=== PATIENT | female | born 1930 | race Caucasian/White ===

== ENCOUNTER 2016-12-14 13:23 | Inpatient (IN) | payer MEDICARE, BC ==
[2016-12-14] MEDS ORDERED: ACETAMINOPHEN IV (For NPO) 1,000 MG in SALINE 100 100ML.BAG IVPB STA (14:15)
[2016-12-14] MEDS ORDERED: IPRATROPIUM-ALBUTEROL 3 ML NEB INHALATION STA (14:15)
[2016-12-14] MEDS ORDERED: SODIUM CHLORIDE 0.9% 500 ML IV STA (14:15)
[2016-12-14] MEDS ORDERED: SODIUM CHLORIDE 0.9% 1,000 ML IV STA (14:15)
--- NOTE | 2016-12-14 14:35 | ED ---
General Adult HPI - General Chief complaint: Shortness of Breath Stated complaint: Weak/Dehydration Time Seen by Provider: 12/14/16 14:05 Source: patient, RN notes reviewed Mode of arrival: ambulatory Limitations: no limitations - History of Present Illness Initial comments: Patient is a 86-year-old female who presents emergency room today with a chief complaint of increased cough congestion over the last 2 weeks. Does admit that this started 2 weeks ago was diagnosed with flu. Patient's son at bedside providing information stating that she was at [facility] diagnosed with flu given Tamiflu. States symptoms do not improve she's had increased rhinorrhea with cough congestion. Patient states multiple colors with a sputum production. Admits to fever and chills at home. Denies any other complaints or symptoms at this time. Patient denies any recent shortness of breath, chest pain, back pain, abdominal pain, nausea or vomiting, numbness or tingling, dysuria or hematuria, constipation or diarrhea, headaches or visual changes, or any other complaints. Denies any past medical history. - Related Data Home Medications Medication Instructions Recorded Confirmed No Known Home Medications [No 12/14/16 12/14/16 Known Home Medications] Allergies Allergy/AdvReac Type Severity Reaction Status Date / Time No Known Allergies Allergy Verified 12/14/16 14:54 Review of Systems ROS Statement: Those systems with pertinent positive or pertinent negative responses have been documented in the HPI. ROS Other: All systems not noted in ROS Statement are negative. Past Medical History Past Medical History: No Reported History History of Any Multi-Drug Resistant Organisms: None Reported Past Surgical History: No Surgical Hx Reported Past Psychological History: No Psychological Hx Reported Smoking Status: Never smoker Past Alcohol Use History: None Reported Past Drug Use History: None Reported General Exam - General Exam Comments Initial Comments: General: The patient is awake and alert, in no distress, and does not appear acutely ill. Eye: Pupils are equal, round and reactive to light, extra-ocular movements are intact. No nystagmus. There is normal conjunctiva bilaterally. No signs of icterus. Ears, nose, mouth and throat: There are moist mucous membranes and no oral lesions. Neck: The neck is supple, there is no tenderness or JVD. Cardiovascular: There is a regular rate and rhythm. No murmur, rub or gallop is appreciated. Respiratory: Mild expiratory wheeze and scattered rhonchi. respirations are non-labored, breath sounds are equal. No stridor, rales. Gastrointestinal: Soft, non-distended, non-tender abdomen without masses or organomegaly noted. There is no rebound or guarding present. No CVA tenderness. Bowel sounds are unremarkable. Musculoskeletal: Normal ROM, no tenderness. Strength 5/5. Sensation intact. Pulses equal bilaterally 2+. Neurological: A&O x 3. CN II-XII intact, There are no obvious motor or sensory deficits. Coordination appears grossly intact. Speech is normal. Skin: Skin is warm and dry and no rashes or lesions are noted. Psychiatric: Cooperative, appropriate mood & affect, normal judgment. Limitations: no limitations Course Vital Signs 12/14/16 12/14/16 12/14/16 14:00 15:32 15:44 Temperature 100.6 F H 99 F Pulse Rate 99 100 93 Respiratory 18 16 Rate Blood Pressure 142/89 123/58 O2 Sat by Pulse 89 L 92 L Oximetry 12/14/16 15:46 Temperature Pulse Rate 96 Respiratory Rate Blood Pressure O2 Sat by Pulse Oximetry Medical Decision Making - Medical Decision Making Patient labs reviewed does show 22,000 white count. Patient's chest x-ray revealed and pneumonia in the right upper lobe. Patient had fever at triage. Patient started on antibiotics Levaquin. Patient will be admitted. Case discussed with attending physician Dr. Cole who discussed case with admitting physician . - Lab Data Result diagrams: 12/14/16 14:30 12/14/16 14:30 Lab Results 12/14/16 12/14/16 12/14/16 Range/Units 14:30 14:30 14:30 WBC 22.6 H (3.8-10.6) k/uL RBC 4.44 (3.80-5.40) m/uL Hgb 12.8 (11.4-16.0) gm/dL Hct 39.2 (34.0-46.0) % MCV 88.3 (80.0-100.0) fL MCH 28.8 (25.0-35.0) pg MCHC 32.6 (31.0-37.0) g/dL RDW 13.1 (11.5-15.5) % Plt Count 506 H (150-450) k/uL Neutrophils % 89 % Lymphocytes % 6 % Monocytes % 3 % Eosinophils % 1 % Basophils % 1 % Neutrophils # 20.1 H (1.3-7.7) k/uL Lymphocytes # 1.4 (1.0-4.8) k/uL Monocytes # 0.6 (0-1.0) k/uL Eosinophils # 0.1 (0-0.7) k/uL Basophils # 0.1 (0-0.2) k/uL PT (9.0-12.0) sec INR (<1.1) APTT (22.0-30.0) sec Sodium 137 (137-145) mmol/L Potassium 3.7 (3.5-5.1) mmol/L Chloride 97 L (98-107) mmol/L Carbon Dioxide 29 (22-30) mmol/L Anion Gap 11 mmol/L BUN 11 (7-17) mg/dL Creatinine 0.70 (0.52-1.04) mg/dL Est GFR (MDRD) Af Amer >60 (>60 ml/min/1.73 sqM) Est GFR (MDRD) Non-Af >60 (>60 ml/min/1.73 sqM) Glucose 119 H (74-99) mg/dL Calcium 8.6 (8.4-10.2) mg/dL Total Bilirubin 0.7 (0.2-1.3) mg/dL AST 29 (14-36) U/L ALT 68 H (9-52) U/L Alkaline Phosphatase 131 H (38-126) U/L Troponin I (0.000-0.034) ng/mL Total Protein 6.1 L (6.3-8.2) g/dL Albumin 3.0 L (3.5-5.0) g/dL Influenza Type A RNA Not Detected (Not Detectd) Influenza Type B (PCR) Not Detected (Not Detectd) 12/14/16 12/14/16 Range/Units 14:40 14:40 WBC (3.8-10.6) k/uL RBC (3.80-5.40) m/uL Hgb (11.4-16.0) gm/dL Hct (34.0-46.0) % MCV (80.0-100.0) fL MCH (25.0-35.0) pg MCHC (31.0-37.0) g/dL RDW (11.5-15.5) % Plt Count (150-450) k/uL Neutrophils % % Lymphocytes % % Monocytes % % Eosinophils % % Basophils % % Neutrophils # (1.3-7.7) k/uL Lymphocytes # (1.0-4.8) k/uL Monocytes # (0-1.0) k/uL Eosinophils # (0-0.7) k/uL Basophils # (0-0.2) k/uL PT 10.6 (9.0-12.0) sec INR 1.0 (<1.1) APTT 22.5 (22.0-30.0) sec Sodium (137-145) mmol/L Potassium (3.5-5.1) mmol/L Chloride (98-107) mmol/L Carbon Dioxide (22-30) mmol/L Anion Gap mmol/L BUN (7-17) mg/dL Creatinine (0.52-1.04) mg/dL Est GFR (MDRD) Af Amer (>60 ml/min/1.73 sqM) Est GFR (MDRD) Non-Af (>60 ml/min/1.73 sqM) Glucose (74-99) mg/dL Calcium (8.4-10.2) mg/dL Total Bilirubin (0.2-1.3) mg/dL AST (14-36) U/L ALT (9-52) U/L Alkaline Phosphatase (38-126) U/L Troponin I <0.012 (0.000-0.034) ng/mL Total Protein (6.3-8.2) g/dL Albumin (3.5-5.0) g/dL Influenza Type A RNA (Not Detectd) Influenza Type B (PCR) (Not Detectd) Disposition Clinical Impression: Community acquired pneumonia, Sepsis Disposition: ADMITTED IP TO THIS HOSP Condition: Stable Time of Disposition: 16:01
[2016-12-14 14:45] LABS: Basophils # (A) 0.1 k/uL (0-0.2); Basophils % (A) 1 %; CH 29.4; CHCM 33.4; Eosinophils # (A) 0.1 k/uL (0-0.7); Eosinophils % (A) 1 %; HCT 39.2 % (34.0-46.0); HDW 2.91; HGB 12.8 gm/dL (11.4-16.0); Luc # (Auto) 0.27; Luc % (Auto) 1; Lymphocytes # (A) 1.4 k/uL (1.0-4.8); Lymphocytes % (A) 6 %; MCH 28.8 pg (25.0-35.0); MCHC 32.6 g/dL (31.0-37.0); MCV 88.3 fL (80.0-100.0); Mean Platelet Volume 6.7; Monocytes # (A) 0.6 k/uL (0-1.0); Monocytes % (A) 3 %; Neutrophils # (A) 20.1 k/uL (1.3-7.7); Neutrophils % (A) 89 %; RBC 4.44 m/uL (3.80-5.40); RDW 13.1 % (11.5-15.5); WBC 22.6 k/uL (3.8-10.6); WBC (Perox) 22.11
[2016-12-14 14:59] LABS: ALT 68 U/L (9-52); AST 29 U/L (14-36); Alkaline Phosphatase 131 U/L (38-126); Anion Gap 11 mmol/L; Blood Urea Nitrogen 11 mg/dL (7-17); Calcium 8.6 mg/dL (8.4-10.2); Carbon Dioxide 29 mmol/L (22-30); Chloride 97 mmol/L (98-107); Glucose 119 mg/dL (74-99); Non-African American GFR(MDRD) >60 (>60 ml/min/1.73 sqM); Potassium 3.7 mmol/L (3.5-5.1); Sodium 137 mmol/L (137-145); Total Bilirubin 0.7 mg/dL (0.2-1.3); Total Protein 6.1 g/dL (6.3-8.2)
[2016-12-14 15:46] LABS: Partial Thromboplastin Time 22.5 sec (22.0-30.0); Prothrombin Time 10.6 sec (9.0-12.0)
--- NOTE | 2016-12-14 15:47 | XR ---
EXAMINATION TYPE: XR chest 2V DATE OF EXAM: 12/14/2016 3:20 PM COMPARISON: NONE TECHNIQUE: PA and lateral views submitted. HISTORY: Cough and congestion FINDINGS: There is subsegmental consolidation medial aspect of the right lower lobe as well as within the right apex and right upper lobe. Underlying COPD and borderline to mild cardiomegaly. Diffuse osteopenia and arthropathy of the shoulders with degenerative change of the spine. IMPRESSION: 1. Right upper and lower lobe area of consolidation correlate for pneumonia. Follow-up to resolution to exclude underlying neoplasm.
[2016-12-14] MEDS ORDERED: LEVOFLOXACIN 500MG-D5W PMX 500 MG in DEXTROSE/WATER 1 100ML.BAG IVPB STA (15:48)
[2016-12-14] MEDS ORDERED: ACETAMINOPHEN TAB 325 MG TAB PO PRN (16:10)
[2016-12-14] MEDS ORDERED: SODIUM CHLORIDE 0.9% 1,000 ML IV ONE (16:10)
[2016-12-14] MEDS ORDERED: ONDANSETRON 4 MG/2 ML VIAL IVP PRN (16:10)
[2016-12-14] MEDS ORDERED: NALOXONE 0.4 MG/ML 1 ML VIAL IV PRN (16:10)
[2016-12-14 16:29] LABS: Appearance,Urine Cloudy (Clear); Bilirubin,Urine Negative (Negative); Glucose,Urine (UA) Negative (Negative); Ketones,Urine 1+ (Negative); Leukocyte Esterase,Urine Trace (Negative); Mucus,Urine Moderate /hpf; Nitrite,Urine Negative (Negative); Particle Count 17992; Protein,Urine 1+ (Negative); RBC,Urine 7 /hpf (0-5); Specific Gravity,Urine 1.027 (1.001-1.035); Squamous Epithelial Cell,Urine 5 /hpf (0-4); UA Billing (MACRO vs. MICRO) MICRO; WBC,Urine 12 /hpf (0-5)
[2016-12-14] MEDS ORDERED: ALPRAZolam 0.25 MG TAB PO PRN (19:22)
[2016-12-14] MEDS ORDERED: IPRATROPIUM-ALBUTEROL 3 ML NEB INHALATION PRN (19:43)
[2016-12-14] MEDS ORDERED: IPRATROPIUM-ALBUTEROL 3 ML NEB INHALATION SCH (20:00)
[2016-12-14] MEDS: IPRATROPIUM-ALBUTEROL 3 ML NEB INHALATION SCH (20:01)
[2016-12-14] MEDS: AZITHROMYCIN 500 MG in SODIUM CHLORIDE 0.9% 250 ML IVPB SCH (21:50)
[2016-12-14] MEDS: HEPARIN SODIUM,PORCINE 5,000 UNIT/ML 1 ML VIAL SQ SCH (21:50)
[2016-12-14] MEDS: MELATONIN 3 MG TABLET PO SCH (21:56)
[2016-12-15] MEDS: IPRATROPIUM-ALBUTEROL 3 ML NEB INHALATION SCH ×4 (07:17→19:34)
[2016-12-15 07:46] LABS: Basophils # (A) 0.1 k/uL (0-0.2); Basophils % (A) 0 %; CH 29.2; CHCM 32.8; Eosinophils # (A) 0.2 k/uL (0-0.7); Eosinophils % (A) 1 %; HCT 34.3 % (34.0-46.0); HDW 2.87; HGB 11.1 gm/dL (11.4-16.0); Luc # (Auto) 0.25; Luc % (Auto) 1; Lymphocytes # (A) 1.7 k/uL (1.0-4.8); Lymphocytes % (A) 9 %; MCH 28.8 pg (25.0-35.0); MCHC 32.2 g/dL (31.0-37.0); MCV 89.5 fL (80.0-100.0); Mean Platelet Volume 6.7; Monocytes # (A) 0.6 k/uL (0-1.0); Monocytes % (A) 3 %; Neutrophils # (A) 16.5 k/uL (1.3-7.7); Neutrophils % (A) 86 %; RBC 3.84 m/uL (3.80-5.40); RDW 13.2 % (11.5-15.5); WBC 19.3 k/uL (3.8-10.6); WBC (Perox) 21.32
[2016-12-15 08:09] LABS: ALT 46 U/L (9-52); AST 20 U/L (14-36); Alkaline Phosphatase 107 U/L (38-126); Anion Gap 12 mmol/L; Blood Urea Nitrogen 10 mg/dL (7-17); Carbon Dioxide 24 mmol/L (22-30); Chloride 102 mmol/L (98-107); Glucose 102 mg/dL (74-99); Non-African American GFR(MDRD) >60 (>60 ml/min/1.73 sqM); Potassium 3.7 mmol/L (3.5-5.1); Sodium 138 mmol/L (137-145); Total Bilirubin 0.6 mg/dL (0.2-1.3); Total Protein 5.3 g/dL (6.3-8.2)
[2016-12-15] MEDS: PANTOPRAZOLE 40 MG TABLET PO SCH (08:16)
[2016-12-15] MEDS: HEPARIN SODIUM,PORCINE 5,000 UNIT/ML 1 ML VIAL SQ SCH ×2 (08:17→19:55)
--- NOTE | 2016-12-15 08:37 | HP ---
DATE OF ADMISSION: 12/14/2016 CHIEF COMPLAINT: Shortness of breath and dehydration. HISTORY OF PRESENT ILLNESS: This 86-year-old woman with a past medical history of no significant medical issues, not being followed by any primary physician in the outpatient setting was complaining of shortness of breath and cough for the past several days at least 2 weeks. The patient initially had flu. Patient was in [facility] and given Tamiflu and symptoms did not improve. Because of increasing symptoms, patient came to [facility] and was admitted for further evaluation and treatment. Bilateral pneumonia, right more than the left is suspected on evaluation. There is no history of any rigors or chills. No history of headache, loss of consciousness or seizures. PAST MEDICAL HISTORY: No history of cardiorespiratory illness. MEDICATIONS PRIOR TO ADMISSION: None. ALLERGIES: None. FAMILY HISTORY: No history of heart disease or strokes in the family. SOCIAL HISTORY: No history of smoking, no history of alcohol. REVIEW OF SYSTEMS: ENT: Diminishing vision, diminished hearing. CARDIOVASCULAR: No angina or palpations. RESPIRATORY: As mentioned earlier. GI: No nausea. : No dysuria. NERVOUS SYSTEM: No numbness or weakness. ALLERGY/IMMUNOLOGY: No asthma or hayfever. MUSCULOSKELETAL: As mentioned earlier. HEMATOLOGY/ONCOLOGY: No history of anemia. ENDOCRINE: No history of diabetes. CONSTITUTIONAL: As mentioned comedones. DERMATOLOGY: Negative. RHEUMATOLOGY: Negative. PSYCHIATRY: As mentioned earlier. PHYSICAL EXAMINATION: Alert and oriented x3. Pulse 97, blood pressure 130/68, respirations 16, temperature 96.6, pulse ox 94% on 4 liters. HEENT: Conjunctiva normal. Oral mucosa moist. NECK: No jugular venous distention. No carotid bruit. No lymph node enlargement. CARDIOVASCULAR: S1, S2 muffled. RESPIRATORY: Breath sounds diminished at the bases. A few scattered rhonchi and crackles. Expiratory wheezing also present. ABDOMEN: Soft, umbilical hernia present, reducible. LEGS: No edema, no swelling. NERVOUS SYSTEM: Higher function as mentioned. Moves all four limbs. No focal motor deficits. LYMPHATIC: No lymphadenopathy in the neck, axillae or groin. SKIN: No ulcer, rash or bleeding. LABS: WBC 22.7, platelets are 506, AST is 29, ALT 68, alkaline phosphatase 131. UA noted. Influenza negative. ASSESSMENT: 1. Acute bilateral pneumonia, possibly and gram-positive with possible sepsis, present on admission, possible influenza pneumonia. 2. History of acute influenza. 3. Possible chronic obstructive pulmonary disease or reactive bronchospasm. 4. Increased ALT, possibly secondary to sepsis. 5. Increased WBC. 6. Increased platelets. 7. Umbilical hernia. 8. FULL CODE. Recommendations and discussion: In this 86-year-old woman who presented with multiple complex medical issues, we will monitor the patient closely. Continue the current medications and continue symptomatic treatment. I would recommend intensive bronchodilators treatment and empiric antibiotics. We will consult Dr. Mehta. As well as Dr. Mehta and continue to monitor. Otherwise, cultures will be obtained. Guarded prognosis because of multiple complex medical issues. Further recommendations to follow. I discussed with the family at the bedside at length and stressed the importance of following up in the outpatient setting. The family understands.
--- NOTE | 2016-12-15 12:40 | P.CNPUL ---
History of Present Illness Consult date: 12/15/16 Reason for consult: pneumonia History of present illness: 86-year-old female patient has been healthy all her life without any known chronic illness or disorder or any chronic medication intake. The patient has been living independently at home for many years. She developed some respiratory illness approximately 10 days ago. She was at a birthday constitution party where she got exposed to younger children. She thought that she could've gotten the flu. At that time the patient presented to [facility] where she was told to have the flu and she was given 5 day course of Tamiflu. Nevertheless the patient did not improve that she progressively got worse to the point where she was having increased cough and congestion and she was becoming more weak and lethargic. She presented to the hospital and a chest x-ray was done and showed a right upper lobe and a lower lobe consolidation consistent with pneumonia. Her white cell count was elevated at 22,000. The patient had 89% neutrophilia. Coagulation profile was within normal. Electrodes are all within normal limits. The patient's mentation was within normal and she was a bit lethargic and slow in answering questions. She is getting profoundly weak. No pleurisy. No hemoptysis. No aspiration. No recurrent respiratory tract infections. She has not received a flu shot this year. A repeat influenza screen that was done here in the hospital was negative. 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 IS INDEPENDANT. NO MEDICAL EQUIPMENT, NO OUTSIDE SERVICES. PT RETIRED FROM [employer] 1981 Smoking Status: Never smoker Past Alcohol Use History: None Reported Past Drug Use History: None Reported - Past Family History Father Family Medical History: Cancer Additional Family Medical History / Comment(s): NON HODGKINS LYMPHOMA Mother Family Medical History: Myocardial Infarction (OK) Medications and Allergies Home Medications Medication Instructions Recorded Confirmed Type No Known Home Medications [No 12/14/16 12/14/16 History Known Home Medications] Allergies Allergy/AdvReac Type Severity Reaction Status Date / Time No Known Allergies Allergy Verified 12/14/16 14:54 Physical Exam Vitals: Vital Signs Temp Pulse Pulse Resp BP BP Pulse Ox 12/15/16 11:13 88 12/15/16 11:07 88 12/15/16 07:24 92 12/15/16 07:18 88 12/15/16 07:00 97.1 F L 94 20 149/77 93 L 12/14/16 20:50 97.2 F L 88 16 134/73 94 L 12/14/16 19:46 92 12/14/16 19:37 90 12/14/16 18:47 96.6 F L 87 16 132/60 95 12/14/16 18:09 97.9 F 91 16 105/54 93 L Intake and Output 12/14/16 12/15/16 12/15/16 22:59 06:59 14:59 Intake Total 700 Balance 700 Intake: IV 600 Sodium Chloride 0.9% 1, 600 000 ml @ 75 mls/hr IV . [id number] ONE Rx#:[id number] Oral 100 Other: Voiding Method Toilet Diaper # Voids 1 1 Head exam was generally normal. There was no scleral icterus or corneal arcus. Mucous membranes were moist.Neck was supple and without jugular venous distension, thyromegaly, or carotid bruits. Carotids were easily palpable bilaterally. There was no adenopathy.lung sounds are diminished bilaterally along with some bibasilar crackles heard in the lower lung echevarria more so on the right.Cardiac exam revealed the PMI to be normally situated and sized. The rhythm was regular and no extrasystoles were noted during several minutes of auscultation. The first and second heart sounds were normal and physiologic splitting of the second heart sound was noted. There were no murmurs, rubs, clicks, or gallops.Abdominal exam revealed normal bowel sounds. The abdomen was soft, non-tender, and without masses, organomegaly, or appreciable enlargement of the abdominal aorta. the patient has a large periumbilical anterior abdominal wall hernia which is easily reducible and there is no signs of incarceration or strangulation. Examination of the extremities revealed easily palpable radial, femoral and pedal pulses. There was no cyanosis, clubbing or edema. Results - Laboratory Findings CBC and BMP: 12/15/16 06:57 12/15/16 06:57 PT/INR, D-dimer PT 10.6 sec (9.0-12.0) 12/14/16 14:40 INR 1.0 (<1.1) 12/14/16 14:40 Abnormal lab findings: Abnormal Labs 12/15/16 12/15/16 06:57 06:57 WBC 19.3 H Hgb 11.1 L Neutrophils # 16.5 H Glucose 102 H Calcium 8.0 L Total Protein 5.3 L Albumin 2.4 L - Diagnostic Findings Chest x-ray: image reviewed Assessment and Plan Plan: assessment 1 bilobar right lung pneumonia following a recent respiratory tract infection which could have been a viral influenza infection/URI. 2 shortness of breath secondary to above 3 acute hypoxic respiratory failure secondary to above 4 leukocytosis secondary to above 5 generalized weakness 6 herpetic lip lesions 7 large anterior abdominal wall hernia which is reducible and there is no evidence of strangulation or incarceration. Plan resuscitate the patient with IV fluids. Put the patient on a combination of Rocephin and Zithromax. Apply Zovirax ointment to the lips. The Fluids to 50 ML 's an Hour. Apply a Belt regarding Her Large Anterior Abdominal Wall Hernia. Repeat Chest X-Ray in A.M. We'll Continue to Follow.
[2016-12-15] MEDS: SODIUM CHLORIDE 0.9% 1,000 ML IV SCH (12:49)
[2016-12-15] MEDS: valACYclovir HCL 1,000 MG TABLET PO SCH ×2 (16:52→23:15)
[2016-12-15] MEDS: BUDESONIDE 1 MG/2 ML NEBU INHALATION SCH (19:34)
[2016-12-15] MEDS: FORMOTEROL FUMARATE 20 MCG/2 ML NEBU INHALATION SCH (19:34)
[2016-12-15] MEDS: AZITHROMYCIN 500 MG in SODIUM CHLORIDE 0.9% 250 ML IVPB SCH (19:55)
[2016-12-15] MEDS: MELATONIN 3 MG TABLET PO SCH (19:56)
[2016-12-16] MEDS: FORMOTEROL FUMARATE 20 MCG/2 ML NEBU INHALATION SCH ×2 (07:36→20:01)
[2016-12-16] MEDS: BUDESONIDE 1 MG/2 ML NEBU INHALATION SCH ×2 (07:36→20:02)
[2016-12-16] MEDS: IPRATROPIUM-ALBUTEROL 3 ML NEB INHALATION SCH ×4 (07:36→20:02)
--- NOTE | 2016-12-16 08:06 | XR ---
EXAMINATION TYPE: XR chest 1V DATE OF EXAM: 12/16/2016 6:52 AM COMPARISON: Prior chest x-ray 14 December 2016 HISTORY: Cough, pneumonia TECHNIQUE: Single frontal view of the chest is obtained. FINDINGS: The heart is enlarged. No pneumothorax or pleural effusion evident. Eventration of the rig ht hemidiaphragm is noted. Interstitium is increased, there may be underlying COPD. There may be some improvement in aeration in the right lower lobe. Pulmonary vascularity and shawna not significantly ch anged. IMPRESSION: Cardiomegaly. Correlate for right lower lobe pneumonia.
[2016-12-16 08:21] LABS: Anion Gap 10 mmol/L; Blood Urea Nitrogen 7 mg/dL (7-17); Calcium 8.2 mg/dL (8.4-10.2); Carbon Dioxide 25 mmol/L (22-30); Chloride 104 mmol/L (98-107); Glucose 109 mg/dL (74-99); Non-African American GFR(MDRD) >60 (>60 ml/min/1.73 sqM); Potassium 3.9 mmol/L (3.5-5.1); Sodium 139 mmol/L (137-145)
[2016-12-16 09:00] LABS: Basophils % (A) 0 %; CHCM 32.2; Eosinophils # (A) 0.3 k/uL (0-0.7); Eosinophils % (A) 2 %; HCT 33.9 % (34.0-46.0); HDW 2.87; HGB 10.6 gm/dL (11.4-16.0); Luc # (Auto) 0.13; Luc % (Auto) 1; Lymphocytes # (A) 1.4 k/uL (1.0-4.8); Lymphocytes % (A) 10 %; MCH 28.3 pg (25.0-35.0); MCHC 31.3 g/dL (31.0-37.0); MCV 90.6 fL (80.0-100.0); Mean Platelet Volume 6.9; Monocytes # (A) 0.6 k/uL (0-1.0); Monocytes % (A) 4 %; Neutrophils # (A) 11.5 k/uL (1.3-7.7); Neutrophils % (A) 83 %; RBC 3.74 m/uL (3.80-5.40); RDW 13.3 % (11.5-15.5); WBC 13.8 k/uL (3.8-10.6); WBC (Perox) 14.72
[2016-12-16] MEDS: SODIUM CHLORIDE 0.9% 1,000 ML IV SCH ×2 (09:23→20:17)
[2016-12-16] MEDS: HEPARIN SODIUM,PORCINE 5,000 UNIT/ML 1 ML VIAL SQ SCH ×2 (09:23→20:59)
[2016-12-16] MEDS: PANTOPRAZOLE 40 MG TABLET PO SCH (09:23)
--- NOTE | 2016-12-16 10:01 | PN ---
DATE OF SERVICE: 12/15/2016 This 86-year-old woman was admitted with acute bilateral pneumonia is being closely monitored at this time. The patient had a recent history evidence of influenza. The repeat testing is negative. Patient is on multiple antibiotics. White count is elevated 22.6 yesterday, today is 19.3. Dr. Mehta is following the patient closely. PAST MEDICAL HISTORY: Reviewed. REVIEW OF SYSTEMS: CARDIOVASCULAR: No angina. RESPIRATORY: As mentioned. GI: As mentioned. : No dysuria. NERVOUS SYSTEM: No numbness or weakness. Current medications are reviewed and include: 1. Tylenol 650 q.6. 2. DuoNeb q.i.d. and p.r.n. 3. Xanax 0.25 t.i.d. 4. Zithromax 500 mg daily. 5. Rocephin 1 gram daily. 6. Heparin 5000 subcu b.i.d. 7. Melatonin 3 mg q.h.s. 8. Narcan 0.2 q.2 p.r.n. 9. Zofran. 10. Protonix 40 mg daily. 11. Valtrex 2 grams p.o. b.i.d. PHYSICAL EXAMINATION: Patient is alert and oriented x2. Pulse 88, blood pressure 141/52, respiration 18, temperature 101.9, pulse ox 92% on Ventimask. HEENT: Conjunctivae normal. NECK: No jugular venous distention. No carotid bruit. No lymph node enlargement. CARDIOVASCULAR: S1 and S2, muffled. No S3, no S4. RESPIRATORY: Breath sounds diminished at the bases. Bilateral scattered rhonchi and crackles. ABDOMEN: Soft, nontender. Umbilical hernia. LEGS: No edema, no swelling. NERVOUS SYSTEM: Higher function as mentioned. Moves all four limbs. No focal deficits. LYMPHATIC: No lymphadenopathy in the neck, axillae or groin. SKIN: No ulcer, rash or bleeding. LABS: WBC 19.3, hemoglobin 11.1. AST is 46, ALT is 107, albumin is 2.7. UA noted. ASSESSMENT: 1. Acute bilateral pneumonia, possibly gram-negative with possible sepsis with acute hypoxic respiratory failure present on admission. 2. Possibly influenza pneumonia. 3. History of recent acute influenza. 4. Possible chronic obstructive pulmonary disease or reactive bronchospasm. 5. Increased ALT, possibly secondary to sepsis. 6. Increased WBC. 7. Increased platelets. 8. Umbilical hernia. 9. Hypoalbuminemia with mild to moderate protein calorie malnutrition. 10. Increased random blood sugar. 11. Increased WBC. 12. Anemia, normocytic, anemia of chronic disease. 13. FULL CODE. RECOMMENDATIONS AND DISCUSSION: In this 86-year-old woman who presented with multiple complex medical issues, we will monitor the patient closely. Continue the current medications. Continue broad-spectrum IV antibiotics. Closely follow with Dr. Mehta. Bronchodilators. Continue with the rest of the medications. Otherwise, DVT prophylaxis. Guarded prognosis. Further recommendations to follow. See orders for details.
--- NOTE | 2016-12-16 13:18 | P.PN ---
Subjective 86-year-old female patient has been healthy all her life without any known chronic illness or disorder or any chronic medication intake. The patient has been living independently at home for many years. She developed some respiratory illness approximately 10 days ago. She was at a birthday democrat where she got exposed to younger children. She thought that she could've gotten the flu. At that time the patient presented to [facility] where she was told to have the flu and she was given 5 day course of Tamiflu. Nevertheless the patient did not improve that she progressively got worse to the point where she was having increased cough and congestion and she was becoming more weak and lethargic. She presented to the hospital and a chest x-ray was done and showed a right upper lobe and a lower lobe consolidation consistent with pneumonia. Her white cell count was elevated at 22,000. The patient had 89% neutrophilia. Coagulation profile was within normal. Electrodes are all within normal limits. The patient's mentation was within normal and she was a bit lethargic and slow in answering questions. She is getting profoundly weak. No pleurisy. No hemoptysis. No aspiration. No recurrent respiratory tract infections. She has not received a flu shot this year. A repeat influenza screen that was done here in the hospital was negative. On 12/16/2016 the patient is being seen in follow-up. The patient is being treated for a right lower lobe pneumonia. She continues to have some chest congestion and cough and however overall she looks better compared to yesterday. She is less short of breath. No fever or chills. No aspiration. No diarrhea. No change in mental status. She is more interactive and alert on today's evaluation. Chest x-ray still showing some right basilar pulmonary infiltration typical of an underlying pneumonia. Objective - Vital Signs Vital signs: Vital Signs Temp 97.6 F 12/16/16 07:00 Pulse 92 12/16/16 11:24 Resp 20 12/16/16 07:00 BP 155/73 12/16/16 07:00 Pulse Ox 94 L 12/16/16 07:00 Intake & Output 12/15/16 12/16/16 12/16/16 18:59 06:59 18:59 Intake Total 50 Balance 50 Intake: Oral 50 Other: Voiding Method Toilet Toilet Diaper Diaper # Voids 2 2 1 # Bowel Movements 1 - Exam Head exam was generally normal. There was no scleral icterus or corneal arcus. Mucous membranes were moist.Neck was supple and without jugular venous distension, thyromegaly, or carotid bruits. Carotids were easily palpable bilaterally. There was no adenopathy.lung sounds are diminished bilaterally along with some bibasilar crackles heard in the lower lung echevarria more so on the right.Cardiac exam revealed the PMI to be normally situated and sized. The rhythm was regular and no extrasystoles were noted during several minutes of auscultation. The first and second heart sounds were normal and physiologic splitting of the second heart sound was noted. There were no murmurs, rubs, clicks, or gallops.Abdominal exam revealed normal bowel sounds. The abdomen was soft, non-tender, and without masses, organomegaly, or appreciable enlargement of the abdominal aorta. the patient has a large periumbilical anterior abdominal wall hernia which is easily reducible and there is no signs of incarceration or strangulation. Examination of the extremities revealed easily palpable radial, femoral and pedal pulses. There was no cyanosis, clubbing or edema. - Labs CBC & Chem 7: 12/16/16 07:27 12/16/16 07:27 Labs: Abnormal Lab Results - Last 24 Hours (Table) 12/16/16 12/16/16 Range/Units 07:27 07:27 WBC 13.8 H (3.8-10.6) k/uL RBC 3.74 L (3.80-5.40) m/uL Hgb 10.6 L (11.4-16.0) gm/dL Hct 33.9 L (34.0-46.0) % Neutrophils # 11.5 H (1.3-7.7) k/uL Glucose 109 H (74-99) mg/dL Calcium 8.2 L (8.4-10.2) mg/dL Assessment and Plan Plan: assessment 1 bilobar right lung pneumonia following a recent respiratory tract infection which could have been a viral influenza infection/URI. 2 shortness of breath secondary to above 3 acute hypoxic respiratory failure secondary to above, stable still on 4 L of oxygen by nasal cannula 4 leukocytosis secondary to above, improving 5 generalized weakness 6 herpetic lip lesions 7 large anterior abdominal wall hernia which is reducible and there is no evidence of strangulation or incarceration. Plan I will start the patient on Robitussin-DM 5 ML's 4 times a day around-the- clock. Continue the Rocephin and Zithromax. Repeat chest x-ray in the morning. Continue bronchodilators. Blood cultures are negative. Sputum samples are still being evaluated and cultured. We'll continue to follow.
[2016-12-16] MEDS: guaiFENesin-DM 100-10MG/5ML 10 ML CUP PO SCH ×3 (16:47→22:42)
[2016-12-16] MEDS: AZITHROMYCIN 500 MG TAB PO SCH (20:57)
[2016-12-16] MEDS: MELATONIN 3 MG TABLET PO SCH (20:57)
[2016-12-17] MEDS: guaiFENesin-DM 100-10MG/5ML 10 ML CUP PO SCH ×4 (05:00→19:17)
[2016-12-17] MEDS: IPRATROPIUM-ALBUTEROL 3 ML NEB INHALATION SCH ×4 (08:29→20:08)
[2016-12-17] MEDS: FORMOTEROL FUMARATE 20 MCG/2 ML NEBU INHALATION SCH ×3 (08:29→20:06)
[2016-12-17] MEDS: BUDESONIDE 1 MG/2 ML NEBU INHALATION SCH ×3 (08:29→20:06)
[2016-12-17 09:57] LABS: Anion Gap 11 mmol/L; Blood Urea Nitrogen 6 mg/dL (7-17); Carbon Dioxide 23 mmol/L (22-30); Chloride 104 mmol/L (98-107); Glucose 105 mg/dL (74-99); Potassium 4.1 mmol/L (3.5-5.1); Sodium 138 mmol/L (137-145)
[2016-12-17 09:58] LABS: Calcium 8.4 mg/dL (8.4-10.2); Non-African American GFR(MDRD) >60 (>60 ml/min/1.73 sqM)
[2016-12-17 10:01] LABS: Basophils % (A) 0 %; CHCM 32.2; Eosinophils # (A) 0.3 k/uL (0-0.7); Eosinophils % (A) 3 %; HCT 34.5 % (34.0-46.0); HDW 2.93; HGB 10.9 gm/dL (11.4-16.0); Luc # (Auto) 0.14; Luc % (Auto) 1; Lymphocytes # (A) 1.7 k/uL (1.0-4.8); Lymphocytes % (A) 15 %; MCH 28.7 pg (25.0-35.0); MCHC 31.7 g/dL (31.0-37.0); MCV 90.5 fL (80.0-100.0); Mean Platelet Volume 7.1; Monocytes # (A) 0.4 k/uL (0-1.0); Monocytes % (A) 4 %; Neutrophils # (A) 8.9 k/uL (1.3-7.7); Neutrophils % (A) 78 %; RBC 3.82 m/uL (3.80-5.40); RDW 13.2 % (11.5-15.5); WBC 11.5 k/uL (3.8-10.6); WBC (Perox) 12.66
[2016-12-17 10:51] VITALS: BMI 27.2
--- NOTE | 2016-12-17 10:55 | PN ---
DATE OF SERVICE: 12/16/2016 This 86-year-old woman was admitted with bilateral pneumonia, is improving significantly. Dr. Mehta is following the patient closely. Occasional cough is reported. Patient has significant herpes labialis. The most recent chest x-ray showed some improvement. Dr. Mehta is following the patient closely. There is no history of fever, rigors or chills. There is no history of headache, loss of consciousness. On exam, alert and oriented x3. Pulse 83, blood pressure 146/75, respirations 18, temperature 98.1, pulse ox 96% on 4 L. HEENT: Conjunctivae normal. Oral mucosa mist. Herpes labialis present. NECK: No jugular venous distention. No carotid bruit. No lymph node enlargement. CARDIOVASCULAR SYSTEM: S1, S2, muffled. RESPIRATORY: Breath sounds diminished at the bases, a few scattered rhonchi, no crackles. ABDOMEN: Soft, nontender. EXTREMITIES: Legs no edema, no swelling. LABS: WBC 13.3, hemoglobin is 10.6. Other labs are noted. ASSESSMENT: 1. Acute hypoxic respiratory failure present on admission. 2. Acute bilateral pneumonia, possibly gram-negative with possible sepsis and acute hypoxic respiratory failure, present on admission. 3. Possibly post-influenza pneumonia. 4. History of recent acute influenza. 5. Possible chronic obstructive pulmonary disease with reactive bronchospasm. 6. Increased ALT, possibly secondary to sepsis. 7. Increased WBC. 8. Increased platelets. 9. Medical hernia. 10. Hypoalbuminemia with mild to moderate protein calorie malnutrition. 11. Increased random blood sugar. 12. Increased WBC. 13. Anemia, normocytic anemia of chronic disease. 14. FULL CODE. RECOMMENDATION: In this 86-year-old woman who presented with multiple complex medical issues, will monitor the patient closely, continue with the current medications, continue with the symptomatic treatment. Continue with the bronchodilators, antibiotics. Dr. Mehta's input appreciated. Further recommendations to follow.
[2016-12-17] MEDS: PANTOPRAZOLE 40 MG TABLET PO SCH (11:57)
[2016-12-17] MEDS: HEPARIN SODIUM,PORCINE 5,000 UNIT/ML 1 ML VIAL SQ SCH ×2 (11:59→21:26)
--- NOTE | 2016-12-17 13:43 | P.PN ---
Subjective Principal diagnosis: Acute right lower lobe pneumonia, community-acquired 86-year-old female patient has been healthy all her life without any known chronic illness or disorder or any chronic medication intake. The patient has been living independently at home for many years. She developed some respiratory illness approximately 10 days ago. She was at a birthday green party where she got exposed to younger children. She thought that she could've gotten the flu. At that time the patient presented to [facility] where she was told to have the flu and she was given 5 day course of Tamiflu. Nevertheless the patient did not improve that she progressively got worse to the point where she was having increased cough and congestion and she was becoming more weak and lethargic. She presented to the hospital and a chest x-ray was done and showed a right upper lobe and a lower lobe consolidation consistent with pneumonia. Her white cell count was elevated at 22,000. The patient had 89% neutrophilia. Coagulation profile was within normal. Electrodes are all within normal limits. The patient's mentation was within normal and she was a bit lethargic and slow in answering questions. She is getting profoundly weak. No pleurisy. No hemoptysis. No aspiration. No recurrent respiratory tract infections. She has not received a flu shot this year. A repeat influenza screen that was done here in the hospital was negative. On 12/16/2016 the patient is being seen in follow-up. The patient is being treated for a right lower lobe pneumonia. She continues to have some chest congestion and cough and however overall she looks better compared to yesterday. She is less short of breath. No fever or chills. No aspiration. No diarrhea. No change in mental status. She is more interactive and alert on today's evaluation. Chest x-ray still showing some right basilar pulmonary infiltration typical of an underlying pneumonia. Reevaluated today on 12/17/2016, patient continues to have cough and shortness of breath. Cough is productive with brownish phlegm, chest x-ray from yesterday was reviewed, continues to have significant infiltrate in the right lower lobe, but there may be some improvement compared to the admission chest x- ray. Objective - Vital Signs Vital signs: Vital Signs Temp 97.9 F 12/17/16 07:00 Pulse 82 12/17/16 12:06 Resp 16 12/17/16 11:55 BP 163/77 12/17/16 07:00 Pulse Ox 92 L 12/17/16 07:00 Intake & Output 12/16/16 12/17/16 12/17/16 18:59 06:59 18:59 Intake Total 760 Balance 760 Weight 72 kg 72 kg Intake: Intake, IV Titration 400 Amount Sodium Chloride 0.9% 1, 400 000 ml @ 50 mls/hr IV . Q20H [facility] Rx#:[id number] Oral 360 Other: Voiding Method Toilet Toilet Diaper Diaper # Voids 2 1 # Bowel Movements 1 - Exam Physical Exam: Revealed an 86-year-old female in no distress HEENT:[Neck is supple.] [No neck masses.] [No thyromegaly.] [No JVD.] Chest: [Crackles and rhonchi noted at the right base.] Cardiac Exam: [Normal S1 and S2, no S3 gallop, no murmur.] Abdomen: [Soft, nontender, no megaly, no rebound, no guarding, large anterior abdominal wall hernia was noted. But no evidence of strangulation or incarceration. Extremities: [No clubbing, no edema, no cyanosis.] Neurological Exam: [No focal neurologic deficit.] - Labs CBC & Chem 7: 12/17/16 08:07 12/17/16 08:07 Labs: Abnormal Lab Results - Last 24 Hours (Table) 12/17/16 12/17/16 Range/Units 08:07 08:07 WBC 11.5 H (3.8-10.6) k/uL Hgb 10.9 L (11.4-16.0) gm/dL Plt Count 506 H (150-450) k/uL Neutrophils # 8.9 H (1.3-7.7) k/uL BUN 6 L (7-17) mg/dL Glucose 105 H (74-99) mg/dL Assessment and Plan Plan: 1 bilobar right lung pneumonia following a recent respiratory tract infection , community-acquired. 2 shortness of breath secondary to above 3 acute hypoxic respiratory failure secondary to above, stable still on 4 L of oxygen by nasal cannula 4 leukocytosis secondary to above, improving 5 generalized weakness 6 herpetic lip lesions 7 large anterior abdominal wall hernia which is reducible and there is no evidence of strangulation or incarceration. Recommendation: Continue present treatment plan, patient seems to be progressing as expected, but not quite ready for discharge planning today, consider discharge planning in the next 24-48 hours. Time with Patient: Less than 30
[2016-12-17] MEDS: SODIUM CHLORIDE 0.9% 1,000 ML IV SCH (15:30)
[2016-12-17] MEDS: AZITHROMYCIN 500 MG TAB PO SCH (21:26)
[2016-12-17] MEDS: MELATONIN 3 MG TABLET PO SCH (21:26)
[2016-12-18] MEDS: guaiFENesin-DM 100-10MG/5ML 10 ML CUP PO SCH ×5 (01:33→22:40)
[2016-12-18] MEDS: FORMOTEROL FUMARATE 20 MCG/2 ML NEBU INHALATION SCH ×2 (07:12→19:15)
[2016-12-18] MEDS: BUDESONIDE 1 MG/2 ML NEBU INHALATION SCH ×2 (07:12→19:15)
[2016-12-18] MEDS: IPRATROPIUM-ALBUTEROL 3 ML NEB INHALATION SCH ×4 (07:12→19:18)
[2016-12-18 07:57] LABS: Basophils # (A) 0.1 k/uL (0-0.2); Basophils % (A) 1 %; CHCM 32.7; Eosinophils # (A) 0.3 k/uL (0-0.7); Eosinophils % (A) 4 %; HCT 33.4 % (34.0-46.0); HDW 2.93; HGB 10.9 gm/dL (11.4-16.0); Luc # (Auto) 0.23; Luc % (Auto) 2; Lymphocytes # (A) 1.5 k/uL (1.0-4.8); Lymphocytes % (A) 16 %; MCH 29.3 pg (25.0-35.0); MCHC 32.8 g/dL (31.0-37.0); MCV 89.4 fL (80.0-100.0); Mean Platelet Volume 7.2; Monocytes # (A) 0.4 k/uL (0-1.0); Monocytes % (A) 4 %; Neutrophils # (A) 6.9 k/uL (1.3-7.7); Neutrophils % (A) 73 %; RBC 3.74 m/uL (3.80-5.40); RDW 13.3 % (11.5-15.5); WBC 9.5 k/uL (3.8-10.6); WBC (Perox) 9.92
[2016-12-18 08:26] LABS: Anion Gap 10 mmol/L; Blood Urea Nitrogen 5 mg/dL (7-17); Calcium 8.3 mg/dL (8.4-10.2); Carbon Dioxide 25 mmol/L (22-30); Chloride 105 mmol/L (98-107); Glucose 100 mg/dL (74-99); Non-African American GFR(MDRD) >60 (>60 ml/min/1.73 sqM); Potassium 4.2 mmol/L (3.5-5.1); Sodium 140 mmol/L (137-145)
[2016-12-18] MEDS: HEPARIN SODIUM,PORCINE 5,000 UNIT/ML 1 ML VIAL SQ SCH ×2 (09:22→21:28)
[2016-12-18] MEDS: PANTOPRAZOLE 40 MG TABLET PO SCH (09:22)
--- NOTE | 2016-12-18 09:49 | PN ---
DATE OF SERVICE: 12/17/2016 This is an 86-year-old woman who was admitted with acute hypoxic respiratory failure and bilateral pneumonia is improving significantly. Patient still has a cough. Dr. Navarro is following the patient. No fever. No hemoptysis. On exam, alert and oriented x3. Pulse 83, blood pressure 158/70, respirations 18, temperature is 98.6, pulse ox 94% on 2 L. HEENT: Oral mucosa moist. NECK: No jugular venous distension, no carotid bruit, no lymph node enlargement. CARDIOVASCULAR SYSTEM: S1, S2, muffled. RESPIRATORY: Breath sounds diminished at the bases. A few scattered rhonchi, no crackles. Abdomen is soft, nontender. EXTREMITIES: Legs no edema, no swelling. NERVOUS SYSTEM: No focal deficits. LABS: WBC is 11.5, hemoglobin is 10.9. ASSESSMENT: 1. Acute hypoxic respiratory failure, present on admission. 2. Acute bilateral pneumonia, possibly gram-negative bacilli with possible sepsis with acute hypoxic respiratory failure present on admission. 3. Possibly post-influenza pneumonia. 4. History of recent acute influenza. 5. Possible chronic obstructive pulmonary disease with reactive bronchospasm. 6. Increased ALT possibly secondary to sepsis. 7. Increased WBC possibly secondary to sepsis. 8. Increased platelets. 9. Umbilical hernia. 10. Mild hypoalbuminemia with mild to moderate protein calorie malnutrition. 11. Increased random blood sugar. 12. Increased WBC. 13. Anemia, normocytic anemia of chronic disease. 14. FULL CODE. RECOMMENDATION: In this 86-year-old woman who presented with multiple complex medical issue, will monitor the patient closely. Continue with the current medication and symptomatic treatment. I would recommend to continue with antibiotics, bronchodilators, closely follow up with Dr. Navarro. Otherwise, guarded prognosis because of multiple complex medical issues and further recommendations to follow. We have repeated the x-ray yesterday which showed right lobe pneumonia. Further recommendations to follow. Discussed with the patient who understands.
--- NOTE | 2016-12-18 13:40 | P.PN ---
Subjective 86-year-old female patient has been healthy all her life without any known chronic illness or disorder or any chronic medication intake. The patient has been living independently at home for many years. She developed some respiratory illness approximately 10 days ago. She was at a birthday democrat where she got exposed to younger children. She thought that she could've gotten the flu. At that time the patient presented to [facility] where she was told to have the flu and she was given 5 day course of Tamiflu. Nevertheless the patient did not improve that she progressively got worse to the point where she was having increased cough and congestion and she was becoming more weak and lethargic. She presented to the hospital and a chest x-ray was done and showed a right upper lobe and a lower lobe consolidation consistent with pneumonia. Her white cell count was elevated at 22,000. The patient had 89% neutrophilia. Coagulation profile was within normal. Electrodes are all within normal limits. The patient's mentation was within normal and she was a bit lethargic and slow in answering questions. She is getting profoundly weak. No pleurisy. No hemoptysis. No aspiration. No recurrent respiratory tract infections. She has not received a flu shot this year. A repeat influenza screen that was done here in the hospital was negative. On 12/16/2016 the patient is being seen in follow-up. The patient is being treated for a right lower lobe pneumonia. She continues to have some chest congestion and cough and however overall she looks better compared to yesterday. She is less short of breath. No fever or chills. No aspiration. No diarrhea. No change in mental status. She is more interactive and alert on today's evaluation. Chest x-ray still showing some right basilar pulmonary infiltration typical of an underlying pneumonia. Reevaluated today on 12/17/2016, patient continues to have cough and shortness of breath. Cough is productive with brownish phlegm, chest x-ray from yesterday was reviewed, continues to have significant infiltrate in the right lower lobe, but there may be some improvement compared to the admission chest x- ray. the patient is seen again today 12/18/2016 in follow-up on the regular medical floor. She is awake and alert in no acute distress. She denies any worsening shortness of breath, cough or congestion. She is continued on ceftriaxone and azithromycin. She is maintaining good O2 saturations in the mid 90s on 2 L/m per nasal cannula. Afebrile. Hemodynamically stable. Objective - Vital Signs Vital signs: Vital Signs Temp 98.5 F 12/18/16 07:00 Pulse 88 12/18/16 11:19 Resp 18 12/18/16 08:00 BP 124/67 12/18/16 07:00 Pulse Ox 94 L 12/18/16 07:00 Intake & Output 12/17/16 12/18/16 12/18/16 18:59 06:59 18:59 Intake Total 1000 Balance 1000 Weight 72 kg Intake: Intake, IV Titration 400 Amount Sodium Chloride 0.9% 1, 400 000 ml @ 50 mls/hr IV . Q20H [facility] Rx#:[id number] Oral 600 Other: Voiding Method Toilet Toilet Toilet Diaper Diaper Diaper # Voids 2 1 # Bowel Movements 1 - Exam GENERAL EXAM: Alert, comfortable in no apparent distress. HEAD: Normocephalic. EYES: Normal reaction of pupils, equal size. NOSE: Clear with pink turbinates. THROAT: No erythema or exudates. NECK: No masses, no JVD. CHEST: No chest wall deformity. LUNGS: Equal air entry with crackles in the right posterior base. CVS: S1 and S2 normal with no audible murmurs, regular rhythm. ABDOMEN: No hepatosplenomegaly, normal bowel sounds, no guarding or rigidity. Extremities: There is no significant peripheral edema. No clubbing, no cyanosis. Peripheral pulses are intact. - Labs CBC & Chem 7: 12/18/16 07:19 12/18/16 07:19 Labs: Abnormal Lab Results - Last 24 Hours (Table) 12/18/16 12/18/16 Range/Units 07:19 07:19 RBC 3.74 L (3.80-5.40) m/uL Hgb 10.9 L (11.4-16.0) gm/dL Hct 33.4 L (34.0-46.0) % Plt Count 500 H (150-450) k/uL BUN 5 L (7-17) mg/dL Glucose 100 H (74-99) mg/dL Calcium 8.3 L (8.4-10.2) mg/dL Assessment and Plan Plan: Impression: 1 bilobar right lung pneumonia following a recent respiratory tract infection , community-acquired. 2 shortness of breath secondary to above 3 acute hypoxic respiratory failure secondary to above, stable still on 4 L of oxygen by nasal cannula 4 leukocytosis secondary to above, improving 5 generalized weakness 6 herpetic lip lesions 7 large anterior abdominal wall hernia which is reducible and there is no evidence of strangulation or incarceration. Plan: The patient was seen and evaluated by Dr. Navarro. We will continue with her current medications. We'll repeat her chest x-ray in the a.m. We'll continue to follow.
[2016-12-18] MEDS: SODIUM CHLORIDE 0.9% 1,000 ML IV SCH (21:27)
[2016-12-18] MEDS: AZITHROMYCIN 500 MG TAB PO SCH (21:28)
[2016-12-18] MEDS: MELATONIN 3 MG TABLET PO SCH (21:28)
--- NOTE | 2016-12-18 23:33 | PN ---
DATE OF SERVICE: 12/18/2016 This 86-year-old woman who was admitted with acute hypoxic respiratory failure is being closely monitored. Dr. Navarro thinks the patient still has significant pneumonia and significant chest signs also. The patient also has a large abdominal hernia. On exam, alert and oriented x2. Pulse 84, blood pressure 151/63, respiration 18, temperature 97.6, pulse ox 94% on 2 L. HEENT: Conjunctivae normal. NECK: No jugular venous distention. CARDIOVASCULAR SYSTEM: S1, S2 muffled. RESPIRATORY SYSTEM: Breath sounds diminished at the bases. A few scattered rhonchi and crackles. ABDOMEN: Soft, obese. Umbilical hernia present. NERVOUS SYSTEM: No focal deficit. LABS: WBC 9.5, hemoglobin 10.9. ASSESSMENT: 1. Acute hypoxic respiratory failure, present on admission. 2. Acute bilateral pneumonia, possibly Gram-negative bacilli with possible sepsis and acute hypoxic respiratory failure, present on admission. 3. Possible post-influenza pneumonia. 4. History of recent acute influenza. 5. Chronic obstructive pulmonary disease with possible reactive bronchospasm. 6. Increased ALT, possibly secondary to sepsis. 7. Increased white count, possibly secondary to sepsis, present on admission. 8. Increased platelets. 9. Umbilical hernia, reducible. 10. Mild hypoalbuminemia with mild to moderate protein-calorie malnutrition. 11. Increased random blood sugar. 12. Increased white count. 13. Anemia, normocytic; anemia of chronic disease. 14. FULL CODE. RECOMMENDATIONS AND DISCUSSION: I recommend to continue with the current medications, continue with the monitoring, symptomatic treatment. Otherwise, at this time continue the antibiotics and bronchodilators. Closely follow with Dr. Navarro. Guarded prognosis because of multiple complex medical issues. Further recommendations to follow.
[2016-12-19 00:25] VITALS: RESP 16
[2016-12-19] MEDS: guaiFENesin-DM 100-10MG/5ML 10 ML CUP PO SCH ×3 (04:21→18:02)
[2016-12-19 07:21] LABS: Basophils # (A) 0.1 k/uL (0-0.2); Basophils % (A) 1 %; CH 28.8; CHCM 32.1; Eosinophils # (A) 0.3 k/uL (0-0.7); Eosinophils % (A) 4 %; HCT 33.8 % (34.0-46.0); HDW 2.85; HGB 10.5 gm/dL (11.4-16.0); Luc # (Auto) 0.19; Luc % (Auto) 2; Lymphocytes # (A) 1.4 k/uL (1.0-4.8); Lymphocytes % (A) 17 %; MCH 28.1 pg (25.0-35.0); MCHC 31.1 g/dL (31.0-37.0); MCV 90.1 fL (80.0-100.0); Mean Platelet Volume 6.4; Monocytes # (A) 0.3 k/uL (0-1.0); Monocytes % (A) 4 %; Neutrophils % (A) 73 %; RBC 3.75 m/uL (3.80-5.40); RDW 13.4 % (11.5-15.5); WBC 8.2 k/uL (3.8-10.6); WBC (Perox) 9.11
[2016-12-19 07:44] LABS: Anion Gap 7 mmol/L; Blood Urea Nitrogen 6 mg/dL (7-17); Calcium 8.3 mg/dL (8.4-10.2); Carbon Dioxide 26 mmol/L (22-30); Chloride 106 mmol/L (98-107); Glucose 97 mg/dL (74-99); Non-African American GFR(MDRD) >60 (>60 ml/min/1.73 sqM); Potassium 4.2 mmol/L (3.5-5.1); Sodium 139 mmol/L (137-145)
--- NOTE | 2016-12-19 07:46 | XR ---
EXAMINATION TYPE: XR chest 1V portable DATE OF EXAM: 12/19/2016 7:23 AM COMPARISON: 12/16/2016 HISTORY: Pneumonia TECHNIQUE: Single frontal view of the chest is obtained. FINDINGS: Right basilar infiltrate stable. Coarsened interstitium is unchanged. Mild cardiomegaly. Diffuse osteopenia and arthropathy of the shoulders. Underlying COPD noted. IMPRESSION: 1. Right basilar infiltrate. 2. Correlate for COPD and underlying chronic interstitial lung disease. 3. Asymmetric increased nonspecific density right apex is stable. Infiltrate versus underlying neopla sm
[2016-12-19] MEDS: IPRATROPIUM-ALBUTEROL 3 ML NEB INHALATION SCH ×3 (08:10→15:46)
[2016-12-19] MEDS: FORMOTEROL FUMARATE 20 MCG/2 ML NEBU INHALATION SCH (08:11)
[2016-12-19] MEDS: BUDESONIDE 1 MG/2 ML NEBU INHALATION SCH (08:11)
[2016-12-19] MEDS: HEPARIN SODIUM,PORCINE 5,000 UNIT/ML 1 ML VIAL SQ SCH (08:52)
[2016-12-19] MEDS: PANTOPRAZOLE 40 MG TABLET PO SCH (08:52)
--- NOTE | 2016-12-19 12:28 | P.PN ---
Subjective 86-year-old female patient has been healthy all her life without any known chronic illness or disorder or any chronic medication intake. The patient has been living independently at home for many years. She developed some respiratory illness approximately 10 days ago. She was at a birthday constitution party where she got exposed to younger children. She thought that she could've gotten the flu. At that time the patient presented to [facility] where she was told to have the flu and she was given 5 day course of Tamiflu. Nevertheless the patient did not improve that she progressively got worse to the point where she was having increased cough and congestion and she was becoming more weak and lethargic. She presented to the hospital and a chest x-ray was done and showed a right upper lobe and a lower lobe consolidation consistent with pneumonia. Her white cell count was elevated at 22,000. The patient had 89% neutrophilia. Coagulation profile was within normal. Electrodes are all within normal limits. The patient's mentation was within normal and she was a bit lethargic and slow in answering questions. She is getting profoundly weak. No pleurisy. No hemoptysis. No aspiration. No recurrent respiratory tract infections. She has not received a flu shot this year. A repeat influenza screen that was done here in the hospital was negative. On 12/16/2016 the patient is being seen in follow-up. The patient is being treated for a right lower lobe pneumonia. She continues to have some chest congestion and cough and however overall she looks better compared to yesterday. She is less short of breath. No fever or chills. No aspiration. No diarrhea. No change in mental status. She is more interactive and alert on today's evaluation. Chest x-ray still showing some right basilar pulmonary infiltration typical of an underlying pneumonia. Reevaluated today on 12/17/2016, patient continues to have cough and shortness of breath. Cough is productive with brownish phlegm, chest x-ray from yesterday was reviewed, continues to have significant infiltrate in the right lower lobe, but there may be some improvement compared to the admission chest x- ray. The patient is seen again today 12/18/2016 in follow-up on the regular medical floor. She is awake and alert in no acute distress. She denies any worsening shortness of breath, cough or congestion. She is continued on ceftriaxone and azithromycin. She is maintaining good O2 saturations in the mid 90s on 2 L/m per nasal cannula. Afebrile. Hemodynamically stable. She is seen again today 12/19/2016 in follow-up. She is awake and alert in no acute distress. She is sitting up in the chair at the bedside. She denies any worsening shortness of breath, cough or congestion. Blood, sputum and urine cultures were negative. She is afebrile. No leukocytosis. She is hoping to go home. Objective - Vital Signs Vital signs: Vital Signs Temp 97.9 F 12/19/16 07:00 Pulse 80 12/19/16 11:39 Resp 16 12/19/16 08:00 BP 128/65 12/19/16 07:00 Pulse Ox 93 L 12/19/16 08:14 Intake & Output 12/18/16 12/19/16 12/19/16 18:59 06:59 18:59 Intake Total 950 Balance 950 Intake: Oral 950 Other: Voiding Method Toilet Toilet Toilet Diaper Diaper Diaper # Voids 2 3 - Exam GENERAL EXAM: Alert, comfortable in no apparent distress. HEAD: Normocephalic. EYES: Normal reaction of pupils, equal size. NOSE: Clear with pink turbinates. THROAT: No erythema or exudates. NECK: No masses, no JVD. CHEST: No chest wall deformity. LUNGS: Equal air entry with crackles in the right posterior base. CVS: S1 and S2 normal with no audible murmurs, regular rhythm. ABDOMEN: No hepatosplenomegaly, normal bowel sounds, no guarding or rigidity. Extremities: There is no significant peripheral edema. No clubbing, no cyanosis. Peripheral pulses are intact. - Labs CBC & Chem 7: 12/19/16 06:49 12/19/16 06:49 Labs: Abnormal Lab Results - Last 24 Hours (Table) 12/19/16 12/19/16 Range/Units 06:49 06:49 RBC 3.75 L (3.80-5.40) m/uL Hgb 10.5 L (11.4-16.0) gm/dL Hct 33.8 L (34.0-46.0) % Plt Count 533 H (150-450) k/uL BUN 6 L (7-17) mg/dL Calcium 8.3 L (8.4-10.2) mg/dL Assessment and Plan Plan: Impression: 1 bilobar right lung pneumonia following a recent respiratory tract infection , community-acquired. 2 shortness of breath secondary to above 3 acute hypoxic respiratory failure secondary to above, stable still on 2 L of oxygen by nasal cannula 4 leukocytosis secondary to above, recovered. 5 generalized weakness 6 herpetic lip lesions 7 large anterior abdominal wall hernia which is reducible and there is no evidence of strangulation or incarceration. Plan: The patient was seen and evaluated by Dr. Navarro. Her chest x-ray and labs were reviewed. The patient is cleared for discharge from the pulmonary standpoint. She'll complete her course of azithromycin. She'll follow-up in our office in 1-2 weeks' time as we can repeat a chest x-ray then. If there is still some concern regarding the right apical area infiltrates versus neoplasm we can do a CAT scan in the outpatient setting.
[2016-12-19] MEDS: SODIUM CHLORIDE 0.9% 1,000 ML IV SCH (13:07)
[2016-12-19 15:59] VITALS: BP 148/76; TEMP 98
[2016-12-19 16:01] VITALS: PULSE 84
--- NOTE | 2016-12-20 16:40 | DS ---
DATE OF ADMISSION: 12/14/2016 DATE OF DISCHARGE: 12/19/2016 FINAL DIAGNOSES: 1. Acute bilateral pneumonia, possibly Gram-negative, with possible sepsis and acute hypoxic respiratory failure, present on admission. 2. Possible post-influenza pneumonia. 3. History of recent acute influenza. 4. Chronic obstructive pulmonary disease with acute exacerbation with possible reactive bronchospasm. 5. Increased ALT, possibly secondary to sepsis. 6. Increased white count, possibly secondary to sepsis, present on admission. 7. Increased platelets. 8. Umbilical hernia, reducible. 9. Mild hypoalbuminemia with mild to moderate protein-calorie malnutrition. 10. Increased random blood sugar. 11. Increased white count. 12. Anemia, normocytic; anemia of chronic disease. 13. FULL CODE. DISCHARGE DISPOSITION: The patient will be discharged in stable condition with guarded prognosis. Total time taken 35 minutes. HISTORY OF PRESENT ILLNESS: This 86-year-old woman with a past medical history of multiple medical problems was admitted with COPD, acute exacerbation, as well as acute bilateral pneumonia, treated with antibiotics, right more than the left. Dr. Navarro and Dr. Mehta saw the patient. Patient improved significantly. Patient has been cleared for discharge by Dr. Navarro. On exam, vitals are stable. CARDIOVASCULAR SYSTEM: S1, S2 muffled. RESPIRATORY: A few scattered rhonchi. ABDOMEN: Soft. NERVOUS SYSTEM: No focal deficit. LABS: WBC 8.2. DISCHARGE ADVICE AND MEDICATIONS: 1. Diet is cardiac. 2. Activity limited until followup. 3. Follow up with Dr. Navarro in one week. 4. Follow up with Dr. Pack in 2 to 3 days. 5. Albuterol 2 puffs q.i.d. 6. Zithromax 500 mg p.o. daily for 5 days. 7. Protonix 40 mg daily for 7 days. 8. Ceftin 500 mg p.o. b.i.d. for one week.
== END 2016-12-19 18:27 | disposition home health service (06) | DRG 871 ==
LOC: EC 13:23 → 5MS5E 16:12
PROVIDERS: ADMIT Hospitalist; ATTEND Hospitalist
DX: A41.50 Gram-negative sepsis, unspecified (principal); J96.01 Acute respiratory failure with hypoxia; J11.00 Influenza due to unidentified influenza virus with unspecified type of pneumonia; E44.0 Moderate protein-calorie malnutrition; J18.9 Pneumonia, unspecified organism; E86.0 Dehydration; J44.0 Chronic obstructive pulmonary disease with (acute) lower respiratory infection; E88.09 Other disorders of plasma-protein metabolism, not elsewhere classified; J44.1 Chronic obstructive pulmonary disease with (acute) exacerbation; D63.8 Anemia in other chronic diseases classified elsewhere; J98.01 Acute bronchospasm; R74.8 Abnormal levels of other serum enzymes; R73.09 Other abnormal glucose; L70.0 Acne vulgaris; H54.7 Unspecified visual loss; H91.90 Unspecified hearing loss, unspecified ear; R53.1 Weakness; M16.0 Bilateral primary osteoarthritis of hip; K42.9 Umbilical hernia without obstruction or gangrene; B00.1 Herpesviral vesicular dermatitis; E66.9 Obesity, unspecified; Z68.27 Body mass index [BMI] 27.0-27.9, adult; Z82.49 Family history of ischemic heart disease and other diseases of the circulatory system; Z80.7 Family history of other malignant neoplasms of lymphoid, hematopoietic and related tissues; Z86.19 Personal history of other infectious and parasitic diseases; Z71.3 Dietary counseling and surveillance
CPT/HCPCS: 36415; 71010; 71020; 80048; 80053; 81001; 83605; 84484; 85025; 85610; 85730; 87040; 87070; 87086; 87205; 87502; 94640; 94760; 96361; 96365; 96375; 99285